=== PATIENT | female | born 1935 | race Caucasian/White ===

== ENCOUNTER 2016-06-19 12:55 | Outpatient (CLI) | payer MEDICARE, OTHER | END 2016-06-19 12:56 | LOC: POD 12:55 | PROVIDERS: ATTEND Podiatrist | DX: B35.1 Tinea unguium (principal); M79.674 Pain in right toe(s); M79.675 Pain in left toe(s); L84 Corns and callosities | CPT/HCPCS: 11721; G0463 ==

== ENCOUNTER 2016-09-18 13:01 | Outpatient (CLI) | payer MEDICARE, OTHER | END 2016-09-18 13:02 | LOC: POD 13:01 | PROVIDERS: ATTEND Podiatrist | DX: B35.1 Tinea unguium (principal); M79.674 Pain in right toe(s); M79.675 Pain in left toe(s) | CPT/HCPCS: 11721; G0463 ==

== ENCOUNTER 2016-12-18 12:59 | Outpatient (CLI) | payer MEDICARE, OTHER | END 2016-12-18 13:00 | LOC: POD 12:59 | PROVIDERS: ATTEND Podiatrist | DX: B35.1 Tinea unguium (principal); M79.674 Pain in right toe(s); M79.675 Pain in left toe(s) | CPT/HCPCS: 11721; G0463 ==

== ENCOUNTER 2017-04-02 12:49 | Outpatient (CLI) | payer MEDICARE, OTHER | END 2017-04-02 12:50 | LOC: POD 12:49 | PROVIDERS: ATTEND Podiatrist | DX: B35.1 Tinea unguium (principal); M79.674 Pain in right toe(s); M79.675 Pain in left toe(s) | CPT/HCPCS: 11721; G0463 ==

== ENCOUNTER 2017-07-02 12:55 | Outpatient (CLI) | payer MEDICARE, OTHER | END 2017-07-02 13:10 | LOC: POD 12:55 | PROVIDERS: ATTEND Podiatrist | DX: B35.1 Tinea unguium (principal); M79.674 Pain in right toe(s); M79.675 Pain in left toe(s) | CPT/HCPCS: 11721; G0463 ==

== ENCOUNTER 2017-10-12 12:50 | Outpatient (CLI) | payer MEDICARE, OTHER | END 2017-10-12 12:52 | LOC: POD 12:50 | PROVIDERS: ATTEND Podiatrist | DX: B35.1 Tinea unguium (principal); M79.674 Pain in right toe(s); M79.675 Pain in left toe(s) | CPT/HCPCS: 11721; G0463 ==

== ENCOUNTER 2018-01-20 09:18 | Outpatient (CLI) | payer MEDICARE, OTHER ==
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
== END 2018-01-20 09:20 ==
LOC: RAD 09:18
PROVIDERS: ATTEND Podiatrist Foot & Ankle Surgery
DX: S97.102A Crushing injury of unspecified left toe(s), initial encounter (principal); X58.XXXA Exposure to other specified factors, initial encounter; Y92.9 Unspecified place or not applicable; Y93.9 Activity, unspecified
CPT/HCPCS: 73630

== ENCOUNTER 2018-11-10 10:41 | Outpatient (CLI) | payer MEDICARE, OTHER ==
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
== END 2018-11-10 10:43 ==
LOC: RAD 10:41
PROVIDERS: ATTEND Family Medicine
DX: M89.9 Disorder of bone, unspecified (principal); S32.501A Unspecified fracture of right pubis, initial encounter for closed fracture
CPT/HCPCS: 77080